=== PATIENT | male | born 1965 | race Caucasian/White ===

== ENCOUNTER 2024-12-12 16:43 | Emergency (ER) | payer BC ==
[~2024-12-12] VITALS: Ht 172.7 cm; Wt 81.6 kg
[2024-12-12] MEDS ORDERED: IBUPROFEN 400 MG TABLET ONE (17:07)
[2024-12-12] MEDS ORDERED: ACETAMINOPHEN ES 500 MG TABLET ONE (17:07)
[2024-12-12] MEDS: ACETAMINOPHEN ES 500 MG TABLET PO ONE (17:11)
[2024-12-12] MEDS: IBUPROFEN 400 MG TABLET PO ONE (17:11)
[2024-12-12] MEDS ORDERED: ONDANSETRON HCL/PF 4 MG/2 ML VIAL ONE (17:15)
[2024-12-12 17:29] LABS: PLATELET COUNT (AUTO) 223 K/uL (150-450); RED BLOOD CELL COUNT(AUTO) 4.80 MIL/uL (4.5-6.0); RED CELL DISTRIBUTION WIDTH 13.1 % (11.5-15.0); WHITE BLOOD COUNT (AUTO) 11.1 K/uL (4.3-11.0)
[2024-12-12] MEDS: IV NS 0.9% 1,000 ML BAG IV ONE (17:29)
[2024-12-12] MEDS: ONDANSETRON HCL/PF 4 MG/2 ML VIAL IVP ONE (17:29)
[2024-12-12 17:39] LABS: CALCIUM, SERUM 9.2 mg/dL (8.5-10.1); CREATININE 0.8 mg/dL (0.6-1.3); SODIUM SERUM 131.0 mmol/L (136-145); UREA NITROGEN, BLOOD 14.0 mg/dL (7-18)
[2024-12-12 17:39] LABS: APPEARANCE,URINE CLEAR (CLEAR); BLOOD, URINE Large Ery/uL (NEGATIVE); LEUKOCYTE ESTERASE ,URINE Large (NEGATIVE); UGLUCOSE Negative (NEGATIVE)
[2024-12-12 17:45] LABS: ASPARTATE AMINOTRANSFERASE 21.0 U/L (15-37); TOTAL PROTEIN, SERUM 7.4 g/dL (6.4-8.2)
[2024-12-12 17:46] LABS: NITRITE, URINE NEGATIVE (NEGATIVE)
[2024-12-12 17:47] LABS: ADD URINE CULTURE YES; SQUAMOUS EPITHELIAL CELL,UR Rare /HPF (None Seen)
[2024-12-12] MEDS ORDERED: IBUP-1490 PO (17:59)
[2024-12-12] MEDS ORDERED: ACET-2030 PO (17:59)
[2024-12-12] MEDS ORDERED: NITR100C PO (17:59)
[2024-12-12 18:14] VITALS: BP 119/66; TEMP 99.6; O2SAT 98
== END 2024-12-12 18:14 | disposition home or self-care (01) ==
LOC: ER 16:51
DX: K52.9 Noninfective gastroenteritis and colitis, unspecified (principal); R30.0 Dysuria; R50.9 Fever, unspecified; R11.0 Nausea; Z88.0 Allergy status to penicillin
CPT/HCPCS: 99283; 96374; 96361; 85025; 80048; 83690; 80076; 81001; 36415; J2405; J7030; 87086-TC

== ENCOUNTER 2024-12-15 09:40 | Emergency (ER) | payer BC ==
[~2024-12-15] VITALS: Ht 177.8 cm; Wt 83.9 kg
[~2024-12-15 09:40] MED LIST: ACET-2030 PO; IBUP-1490 PO; NITR100C PO
[2024-12-15] MEDS: ONDANSETRON HCL/PF 4 MG/2 ML VIAL IVP ONE (10:00)
[2024-12-15] MEDS: IV NS 0.9% 1,000 ML BAG IV ONE (10:00)
[2024-12-15] MEDS ORDERED: ONDANSETRON HCL/PF 4 MG/2 ML VIAL ONE (10:04)
[2024-12-15 10:30] LABS: PLATELET COUNT (AUTO) 184 K/uL (150-450); RED BLOOD CELL COUNT(AUTO) 4.89 MIL/uL (4.5-6.0); RED CELL DISTRIBUTION WIDTH 13.1 % (11.5-15.0); WHITE BLOOD COUNT (AUTO) 8.8 K/uL (4.3-11.0)
[2024-12-15 10:38] LABS: CALCIUM, SERUM 8.2 mg/dL (8.5-10.1); CREATININE 0.7 mg/dL (0.6-1.3); SODIUM SERUM 127.0 mmol/L (136-145); UREA NITROGEN, BLOOD 6.0 mg/dL (7-18)
[2024-12-15 10:43] LABS: ASPARTATE AMINOTRANSFERASE 20.0 U/L (15-37); TOTAL PROTEIN, SERUM 7.2 g/dL (6.4-8.2)
[2024-12-15] MEDS ORDERED: ONDA4TAB11 PO (11:14)
[2024-12-15] MEDS ORDERED: DICY10CA37 PO (11:14)
[2024-12-15 11:50] VITALS: BP 131/61; TEMP 99; O2SAT 98
== END 2024-12-15 11:51 | disposition home or self-care (01) ==
LOC: ER 09:44
DX: K52.9 Noninfective gastroenteritis and colitis, unspecified (principal); R11.2 Nausea with vomiting, unspecified; Z88.0 Allergy status to penicillin
CPT/HCPCS: 99283; 96374; 96361; 85025; 80048; 83690; 80076; 36415; J2405; J7030